=== PATIENT | female | born 2000 | race Caucasian/White ===

== ENCOUNTER 2023-11-11 20:30 | Outpatient (CLI) | payer SELFPAY ==
[~2023-11-11] VITALS: Ht 165.1 cm; Wt 141.8 kg
[2023-11-11] MEDS ORDERED: PRENTAB9 PO (20:38)
[2023-11-11 20:46] VITALS: BP 132/80
[2023-11-11] MEDS ORDERED: HOME MED LIST COMPLETE! XX SCH (20:50)
[2023-11-11 21:05] LABS: HEMATOCRIT 36.3 % (36.0-47.0); HEMOGLOBIN 12.3 g/dl (12.0-15.5); MEAN CORPUSCULAR HEMOGLOBIN 30.6 pg (27.0-33.0); MEAN CORPUSCULAR HGB CONC 33.9 g/dl (32.0-36.5); MEAN CORPUSCULAR VOLUME 90.3 fl (80.0-96.0); PLATELET COUNT, AUTOMATED 326 10^3/uL (150-450); RED BLOOD COUNT 4.02 10^6/uL (4.00-5.40); WHITE BLOOD COUNT 16.6 10^3/uL (4.0-10.0)
[2023-11-11 21:42] LABS: INR 1.08; PARTIAL THROMBOPLASTIN TIME 29.8 SECONDS (24.8-34.2); PROTHROMBIN TIME 13.6 SECONDS (12.5-14.5)
== END 2023-11-12 00:45 | disposition home or self-care (01) ==
LOC: M LDO 20:30
PROVIDERS: ATTEND Obstetrics & Gynecology
DX: O9A.213 Injury, poisoning and certain other consequences of external causes complicating pregnancy, third trimester (principal); S80.00XA Contusion of unspecified knee, initial encounter; Z3A.36 36 weeks gestation of pregnancy
CPT/HCPCS: 36415; 59025; 76815; 85027; 85384; 85610; 85730; G0463

== ENCOUNTER 2023-11-19 10:35 | Outpatient (CLI) | payer SELFPAY ==
[~2023-11-19] VITALS: Ht 165.1 cm; Wt 144.4 kg
[~2023-11-19 10:35] MED LIST: PRENTAB9 PO
[2023-11-19] MEDS ORDERED: ACET325C5 PO (10:55)
[2023-11-19 10:58] VITALS: BP 98/66
[2023-11-19] MEDS ORDERED: HOME MED LIST COMPLETE! XX SCH (11:00)
[2023-11-19 11:16] VITALS: BP 128/59
[2023-11-19 11:30] VITALS: BP 117/56
[2023-11-19 11:44] LABS: TOTAL PROTEIN,RANDOM URINE 29.6 MG/DL (0.0-14.0)
[2023-11-19 11:47] LABS: BASO % 0.2 % (0.0-1.0); EOS # 0.1 10^3/uL (0.0-0.5); EOS % 0.4 % (0.0-3.0); HEMATOCRIT 36.3 % (36.0-47.0); HEMOGLOBIN 12.3 g/dl (12.0-15.5); LYMPH # 1.9 10^3/uL (1.5-5.0); LYMPH % 13.5 % (24.0-44.0); MEAN CORPUSCULAR HEMOGLOBIN 30.8 pg (27.0-33.0); MEAN CORPUSCULAR HGB CONC 33.9 g/dl (32.0-36.5); MEAN CORPUSCULAR VOLUME 90.8 fl (80.0-96.0); MONO # 0.9 10^3/uL (0.0-0.8); MONO % 6.6 % (2.0-8.0); NEUTROPHILS # 10.9 10^3/uL (1.5-8.5); NEUTROPHILS % 78.9 % (36.0-66.0); PLATELET COUNT, AUTOMATED 313 10^3/uL (150-450); WHITE BLOOD COUNT 13.9 10^3/uL (4.0-10.0)
[2023-11-19 11:49] LABS: CREATININE,RANDOM URINE 161.7 MG/DL
[2023-11-19 12:14] LABS: ALBUMIN 2.5 G/DL (3.2-5.2); ALKALINE PHOSPHATASE 127 U/L (46-116); ALT/SGPT 19 U/L (7.0-40); AST/SGOT 15 U/L (<34); BILIRUBIN,TOTAL 0.3 MG/DL (0.3-1.2); BLOOD UREA NITROGEN 10 MG/DL (9-23); CALCIUM LEVEL 8.1 MG/DL (8.5-10.1); CARBON DIOXIDE LEVEL 22 MMOL/L (20-31); CHLORIDE LEVEL 106 MMOL/L (98-107); CREATININE FOR GFR 0.49 MG/DL (0.55-1.30); GLOMERULAR FILTRATION RATE > 60.0 (>60); GLUCOSE, FASTING 82 MG/DL (60-100); POTASSIUM SERUM 4.2 MMOL/L (3.5-5.1); SODIUM LEVEL 135 MMOL/L (136-145); TOTAL PROTEIN 5.7 G/DL (5.7-8.2)
== END 2023-11-19 12:15 | disposition home or self-care (01) ==
LOC: M LDO 10:35
PROVIDERS: ATTEND Advanced Practice Midwife
DX: O26.893 Other specified pregnancy related conditions, third trimester (principal); R03.0 Elevated blood-pressure reading, without diagnosis of hypertension; R51.9 Headache, unspecified; Z3A.37 37 weeks gestation of pregnancy
CPT/HCPCS: 36415; 59025; 80053; 82570; 84156; 85025; G0463

== ENCOUNTER 2023-11-28 18:15 | Inpatient (IN) | payer OTHER, SELFPAY ==
[~2023-11-28] VITALS: Ht 165.1 cm; Wt 145.6 kg
[~2023-11-28 18:15] MED LIST changes: +ACET325C5 PO
[2023-11-28] MEDS ORDERED: HOME MED LIST COMPLETE! XX SCH (18:40)
[2023-11-28 20:21] LABS: BASO % 0.2 % (0.0-1.0); EOS # 0.1 10^3/uL (0.0-0.5); EOS % 0.5 % (0.0-3.0); HEMATOCRIT 39.8 % (36.0-47.0); HEMOGLOBIN 13.2 g/dl (12.0-15.5); LYMPH # 2.6 10^3/uL (1.5-5.0); LYMPH % 14.9 % (24.0-44.0); MEAN CORPUSCULAR HEMOGLOBIN 30.3 pg (27.0-33.0); MEAN CORPUSCULAR HGB CONC 33.2 g/dl (32.0-36.5); MEAN CORPUSCULAR VOLUME 91.5 fl (80.0-96.0); MONO # 1.3 10^3/uL (0.0-0.8); MONO % 7.4 % (2.0-8.0); NEUTROPHILS # 13.2 10^3/uL (1.5-8.5); NEUTROPHILS % 76.5 % (36.0-66.0); PLATELET COUNT, AUTOMATED 341 10^3/uL (150-450); RED BLOOD COUNT 4.35 10^6/uL (4.00-5.40); WHITE BLOOD COUNT 17.2 10^3/uL (4.0-10.0)
[2023-11-28] MEDS ORDERED: OXYTOCIN DRIP 30 UNITS in IV 1 EA IV PRN (20:40)
[2023-11-28] MEDS ORDERED: CARBOPROST TROMETHAMINE 250 MCG/ML AMP IM PRN (20:40)
[2023-11-28] MEDS ORDERED: METHYLERGONOVINE MALEATE 0.2MG/ML 1ML VIAL IM PRN (20:40)
[2023-11-28] MEDS ORDERED: TRANEXAMIC ACID INJection 1,000 MG in NS 100 ML IV PRN (20:40)
[2023-11-28] MEDS ORDERED: LR 1,000 ML IV SCH (20:40)
[2023-11-28] MEDS ORDERED: LIDOCAINE 1% MDV 20ML VIAL INFIL PRN (20:40)
[2023-11-28] MEDS: miSOPROStol 50MCG 1/2 TABLET PO SCH (21:06)
[2023-11-28 22:09] VITALS: BP 124/64
[2023-11-29] VITALS (23 sets, daily range): BP systolic 100–174; BP diastolic 45–96
[2023-11-29] MEDS ORDERED: FENTANYL 2MCG/ML ROPIVACAINE 0.2% IN 0.9% NACL 100ML IVBAG As Ordered ONE (17:09)
[2023-11-29] MEDS ORDERED: EPIDURAL/PCA KEYS XX PRN (17:15)
[2023-11-29] MEDS ORDERED: ONDANSETRON 4MG 2ML VIAL IV PRN (17:15)
[2023-11-29] MEDS ORDERED: diphenhydrAMINE 50MG/ML VIAL IV PRN (17:15)
[2023-11-29] MEDS ORDERED: NALOXONE INJ 0.4MG/1ML VIAL IV PRN (17:15)
[2023-11-29] MEDS ORDERED: LR 500 ML IV PRN (17:15)
[2023-11-29] MEDS: FENTANYL/ROPIVACAINE/NACL BAG 100 ML EPIDURAL SCH (18:29)
[2023-11-29] MEDS: ePHEDrine SULFATE 25 MG/5 ML(5MG/ML) SYRINGE IVP PRN (18:29)
[2023-11-29] MEDS ORDERED: RHOGAM 300MCG (1500IU) INJ IM SCH (22:15)
[2023-11-29] MEDS ORDERED: MOM 30ML SUSPENSION UDC PO PRN (22:15)
[2023-11-29] MEDS ORDERED: ANUSOL HC CREAM 30GM TOP PRN (22:15)
[2023-11-29] MEDS ORDERED: DOCUSATE SODIUM 100MG CAPSULE PO PRN (22:15)
[2023-11-29] MEDS ORDERED: METHYLERGONOVINE MALEATE 0.2 MG TAB PO PRN (22:15)
[2023-11-29] MEDS: OXYTOCIN DRIP 30 UNITS in IV 1 EA IV PRN (23:56)
[2023-11-30] MEDS: ACETAMINOPHEN 500 MG TAB PO PRN (00:14)
[2023-11-30] MEDS: DIBUCAINE 1% OINTMENT 30GM TOP PRN (03:01)
[2023-11-30] MEDS: IBUPROFEN 800 MG TAB PO PRN (03:01)
[2023-11-30 06:00] VITALS: BP 139/71; O2SAT 98
[2023-11-30] MEDS: PRENATAL VITAMINS CHEWABLE TABLET PO SCH (08:39)
[2023-11-30] MEDS: FERROUS SULFATE 325MG TAB PO SCH (08:39)
[2023-11-30 18:00] VITALS: BP 140/79; O2SAT 96
[2023-12-01 06:00] VITALS: BP 127/75; O2SAT 99
[2023-12-01] MEDS ORDERED: MEASLES,MUMPS,RUBELLA VACCINE INJ (MMR-II) SC.IMMUN ONE (09:00)
== END 2023-12-01 13:22 | disposition home or self-care (01) | DRG 807 ==
LOC: M LDI 18:15 → M OBS 11-30 00:50
PROVIDERS: ADMIT Advanced Practice Midwife; ATTEND Obstetrics & Gynecology
PROC: 3E0P7GC Introduction of Other Therapeutic Substance into Female Reproductive, Via Natural or Artificial Opening (ICD-10-PCS; 2023-11-28)
PROC: 10E0XZZ Delivery of Products of Conception, External Approach (ICD-10-PCS; principal; 2023-11-29)
PROC: 0KQM0ZZ Repair Perineum Muscle, Open Approach (ICD-10-PCS; 2023-11-29)
PROC: 10907ZC Drainage of Amniotic Fluid, Therapeutic from Products of Conception, Via Natural or Artificial Opening (ICD-10-PCS; 2023-11-29)
DX: O99.214 Obesity complicating childbirth (principal); Z37.0 Single live birth; Z3A.39 39 weeks gestation of pregnancy; O13.4 Gestational [pregnancy-induced] hypertension without significant proteinuria, complicating childbirth; E66.01 Morbid (severe) obesity due to excess calories; O70.1 Second degree perineal laceration during delivery